=== PATIENT | female | born 1995 | race Caucasian/White ===

== ENCOUNTER → 2021-11-18 | Outpatient (CLI) | payer OTHER ==
[~2021-11-18] MED LIST: ACTIGALL300 MG PO; HYDROXYZINE HCL25 MG PO; LORTAB 5-325 M1 EACH PO; PRENATABS FA T1 EACH PO; PRENATAL VITAM1 EAC8 PO
== END ==
LOC: CT 12:18
DX: R19.8 Other specified symptoms and signs involving the digestive system and abdomen (principal); R10.9 Unspecified abdominal pain; N39.0 Urinary tract infection, site not specified
CPT/HCPCS: Q9967